=== PATIENT | male | born 1980 | race Two or more races ===

== ENCOUNTER 2021-11-20 16:42 | Emergency (ER) | payer SELFPAY ==
[~2021-11-20] VITALS: Ht 165.1 cm; Wt 118.8 kg
[2021-11-20] MEDS ORDERED: CARI350T PO (19:20)
[2021-11-20 19:52] VITALS: BP 139/88
== END 2021-11-20 19:52 | disposition home or self-care (01) ==
LOC: ER 16:47
DX: S13.4XXA Sprain of ligaments of cervical spine, initial encounter (principal); S33.5XXA Sprain of ligaments of lumbar spine, initial encounter; S40.011A Contusion of right shoulder, initial encounter; E11.9 Type 2 diabetes mellitus without complications; V49.59XA Passenger injured in collision with other motor vehicles in traffic accident, initial encounter; Y93.89 Activity, other specified; Y92.413 State road as the place of occurrence of the external cause; Y99.8 Other external cause status
CPT/HCPCS: 72125-TC; 72131-TC; 73030-TC